=== PATIENT | male | born 2005 | race American Indian/Alaskan Native ===

== ENCOUNTER 2024-03-21 01:29 | Emergency (ER) | payer SELFPAY ==
[2024-03-21] MEDS ORDERED: Lidocaine 1% 5 ML VIAL INJECT ONE (02:28)
[2024-03-21] MEDS: Diphtheria,Pertussis(Acell),Tetanus Vaccine 0.5 ML Syringe IM ONE (03:26)
[2024-03-21] MEDS: Bacitracin Oint 1 GM U/D Packet TOP ONE (03:26)
== END 2024-03-21 03:37 | disposition home or self-care (01) ==
LOC: DL.ED 01:29
DX: S61.421A Laceration with foreign body of right hand, initial encounter (principal); Z23 Encounter for immunization; F17.210 Nicotine dependence, cigarettes, uncomplicated; W25.XXXA Contact with sharp glass, initial encounter
CPT/HCPCS: 12001; 90471; 90715; 99282; A9270